=== PATIENT | female | born 1975 ===

== ENCOUNTER 2019-01-04 22:07 | Emergency (ER) | payer BC, MEDICAID ==
[2019-01-04] MEDS ORDERED: Ketorolac 60 MG/2 ML SDV IM ONE (22:51)
--- NOTE | 2019-01-04 22:51 | EDM.PDOC ---
ED HPI GENERAL MEDICAL PROBLEM - General Stated Complaint: NECK PAIN Time Seen by Provider: 01/04/19 22:07 Source of Information: Reports: Patient, Family History Limitations: Reports: No Limitations - History of Present Illness INITIAL COMMENTS - FREE TEXT/NARRATIVE: 43 y.o.w.f from [place] came with her family to the ED due to sudden onset of left sided neck pain when she got up this morning. No trauma. Pt had similar symptoms in the past. No N/V/D. Pt has some kidney issues (?). No other acute med issues. BP 132/90 RR 18 Pulse ox 100% on RA Temp 36.6 Pulse 112 Onset Date: 01/04/19 Onset Time: 07:00 Duration: Hour(s):, Day(s): Location: Reports: Neck Quality: Reports: Dull Severity: Moderate Improves with: Reports: Rest Worsens with: Reports: Movement Context: Reports: Other Associated Symptoms: Reports: No Other Symptoms Left Neck Pain Score (Numeric/FACES): 10 - Related Data Allergies Allergy/AdvReac Type Severity Reaction Status Date / Time No Known Allergies Allergy Verified 11/04/15 08:22 Home Meds: Home Meds Cyclobenzaprine [Flexeril] 5 - 10 mg PO TID PRN 12/17/14 [History] Rizatriptan [Maxalt] 10 mg PO ASDIRECTED PRN 12/17/14 [History] Tetrahydrozoline [Visine] 1 drop EYEBOTH Q4HR PRN 12/17/14 [History] Gabapentin [Neurontin] 100 mg PO DAILY 11/03/15 [History] Ibuprofen [Motrin] 800 mg PO Q8HR PRN 11/03/15 [History] Simvastatin [Zocor] 10 mg PO DAILY 11/04/15 [History] metFORMIN [Glucophage] 500 mg PO BIDMEALS 11/04/15 [History] Orphenadrine [Norflex] 100 mg PO BID PRN #10 tab 01/04/19 [Rx] Past Medical History HEENT History: Reports: None Cardiovascular History: Reports: None Respiratory History: Reports: None Gastrointestinal History: Reports: Cholelithiasis CANNONEER History: Reports: Other Musculoskeletal History: LEFT KNEE PAIN R/T POSTERIOR HORN RADIAL TEAR Neurological History: Reports: Migraines Psychiatric History: Reports: None Endocrine/Metabolic History: Reports: Diabetes, Type II, Obesity/BMI 30+ Hematologic History: Reports: None Immunologic History: Reports: None Oncologic (Cancer) History: Reports: None Dermatologic History: Reports: None - Infectious Disease History Infectious Disease History: Reports: None - Past Surgical History Female Surgical History: Reports: Breast Biopsy, Section, Hysterectomy, Oophorectomy ED ROS GENERAL - Review of Systems Review Of Systems: See Below Constitutional: Reports: No Symptoms HEENT: Reports: No Symptoms Respiratory: Reports: No Symptoms Cardiovascular: Reports: No Symptoms Endocrine: Reports: No Symptoms GI/Abdominal: Reports: No Symptoms : Reports: No Symptoms Musculoskeletal: Reports: Neck Pain Skin: Reports: No Symptoms Neurological: Reports: No Symptoms Psychiatric: Reports: No Symptoms Hematologic/Lymphatic: Reports: No Symptoms Immunologic: Reports: No Symptoms - Physical Exam Exam: See Below Exam Limited By: No Limitations General Appearance: Alert, WD/WN, Moderate Distress Eye Exam: Bilateral Eye: Normal Inspection Ears: Normal External Exam, Normal Canal Nose: Normal Inspection Throat/Mouth: Normal Inspection, Normal Lips, Normal Voice, No Airway Compromise Head Exam: Atraumatic, Normocephalic Neck: Normal Inspection, Tender Lateral (left lateral ) Respiratory/Chest: No Respiratory Distress, Lungs Clear, Normal Breath Sounds, Chest Non-Tender Cardiovascular: Normal Peripheral Pulses, Regular Rate, Rhythm, No Edema, No Gallop GI/Abdominal: Normal Bowel Sounds, Soft, Non-Tender, No Organomegaly, No Mass, Pelvis Stable (Female) Exam: Deferred Rectal (Female) Exam: Deferred Neuro Exam (Abbreviated): Alert, Oriented, CN II-XII Intact, Normal Cognition, Normal Gait Back Exam: Normal Inspection, Full Range of Motion Extremities: Normal Inspection, Normal Range of Motion, Non-Tender, No Pedal Edema Psychiatric: Normal Affect, Normal Mood Skin Exam: Warm, Dry, Intact, Normal Color, No Rash Course - Vital Signs Text/Narrative:: 43 y.o.w.f [place] came with her family to the ED due to sudden onset of left sided neck pain when she got up this morning. No trauma. Pt had similar symptoms in the past. No N/V/D. Pt has some kidney issues (?). No other acute med issues. BP 132/90 RR 18 Pulse ox 100% on RA Temp 36.6 Pulse 112 PE: WNWD W F with left neck sprain Imaging/Labs: Not indicated Impression: Left neck sprain Tx: Toradol, Norflex Reexam: Improved 80% Plan: D/C with instructions Last Recorded V/S: Last Vital Signs Temp 36.8 C 01/04/19 23:25 Pulse 93 01/04/19 23:25 Resp 16 01/04/19 23:25 BP 128/72 01/04/19 23:25 Pulse Ox 98 01/04/19 23:25 - Orders/Labs/Meds Meds: Medications Discontinued Medications Generic Name Dose Route Start Last Admin Trade Name Freq PRN Reason Stop Dose Admin Ketorolac Tromethamine 60 mg 01/04/19 22:51 01/04/19 23:06 Toradol IM 01/04/19 22:52 60 mg ONETIME ONE Administration Orphenadrine Citrate 60 mg 01/04/19 23:00 01/04/19 23:06 Norflex IM 60 mg Q12H MORRO Administration Departure - Departure Time of Disposition: 23:21 Disposition: Home, Self-Care 01 Condition: Good Clinical Impression: Acute neck sprain Qualifiers: Encounter type: initial encounter Qualified Code(s): S13.9XXA - Sprain of joints and ligaments of unspecified parts of neck, initial encounter - Discharge Information Prescriptions: Orphenadrine [Norflex] 100 mg PO BID PRN #10 tab PRN Reason: Muscle Spasm Instructions: Cervical Sprain, [id number] Referrals: Samaria Whaley NP [Primary Care Provider] - Forms: ED Department Discharge Additional Instructions: please apply ice to the affected area, Norflex for muscle spasm, please f/u, come back if your symptoms get worse acutely
[2019-01-05 00:35] VITALS: BP 128/72
== END 2019-01-04 23:30 | disposition home or self-care (01) ==
LOC: FB.ED 22:07
DX: S13.9XXA Sprain of joints and ligaments of unspecified parts of neck, initial encounter (principal); Z79.899 Other long term (current) drug therapy; X58.XXXA Exposure to other specified factors, initial encounter
CPT/HCPCS: 96372; 99283; J1885; J2360

== ENCOUNTER 2019-11-13 08:20 | Day surgery (SDC) | payer BC ==
[~2019-11-13 08:20] MED LIST: Lactated Ringers 1,000 ML IV SCH; Sodium Chloride 0.9% 10 ML Syringe FLUSH PRN
[2019-11-13] MEDS ORDERED: Propofol 200 MG/20 ML SDV IV ONE (08:21)
--- NOTE | 2019-11-13 10:42 | PCM.OPNOTE ---
- General Post-Op/Procedure Note Date of Surgery/Procedure: 11/13/19 Operative Procedure(s): egd with cold forcep biopsy. c scope with cold forcep biopsy Findings: gastroduodenitis esophagitis ascending colon polyp Pre Op Diagnosis: dysphagia. rlq abd pain Post-Op Diagnosis: gastroduodenitis. esophagitis. ascending colon polyp Anesthesia Technique: MAC Primary Surgeon: Abdoulaye Pichardo Anesthesia Provider: Andreas Lebron Pathology: stomach duodenum esophagus colon polyp Complications: None Condition: Good Free Text/Narrative:: see dictation
[2019-11-13 11:15] VITALS: BP 113/65
[2019-11-13 11:21] VITALS: PULSE 61
--- NOTE | 2019-11-13 17:12 | OR ---
DATE OF OPERATION: 11/13/2019 SURGEON: Abdoulaye Pichardo MD PROCEDURES PERFORMED: Esophagogastroduodenoscopy with cold forceps biopsy and colonoscopy with cold forceps biopsy. PREOPERATIVE DIAGNOSES: History of dysphagia as well as right lower quadrant abdominal pain. POSTOPERATIVE DIAGNOSES: Gastroduodenitis, esophagitis, and ascending colon polyp. DESCRIPTION OF OPERATION: After excellent IV sedation was administered, the bite block was inserted. The flexible endoscope was passed without difficulty down the patient's esophagus and into the stomach. Stomach was insufflated. Scope passed through the pylorus, second portion of the duodenum, and slowly withdrawn. Following findings were noted. First portion of the duodenum demonstrated some inflammation and biopsies were taken. Stomach, diffuse inflammation and biopsies were taken. The esophagus, especially the distal 3 cm, also demonstrated some mild inflammation as well and multiple biopsies were taken. The stomach was deflated, and the scope was removed. Our attention was then turned to the rectum. Digital rectal exam was performed. No marked abnormality was noted. Flexible colonoscope was inserted and advanced to the cecum. The prep was excellent. The following findings were noted. Ascending colon, small polyp, biopsied with cold biopsy forceps and sent for permanent. Transverse colon, unremarkable. Descending colon, unremarkable. Sigmoid, unremarkable. Rectum and anus, unremarkable. The patient tolerated the procedure well and was taken to recovery room in good condition. We will be seeing her back in the office in 7 to 10 days. /[id number] EDWIN/NANY
== END 2019-11-13 11:34 | disposition home or self-care (01) ==
LOC: FB.SDS 08:20
PROVIDERS: ATTEND Surgery
DX: D12.2 Benign neoplasm of ascending colon (principal); K29.80 Duodenitis without bleeding; K29.50 Unspecified chronic gastritis without bleeding; K20.9 Esophagitis, unspecified; F33.2 Major depressive disorder, recurrent severe without psychotic features; E11.9 Type 2 diabetes mellitus without complications; Z79.899 Other long term (current) drug therapy; Z79.84 Long term (current) use of oral hypoglycemic drugs
CPT/HCPCS: 82962; 88305; 88313; 88342; J2704; J7120

== ENCOUNTER 2021-05-04 10:21 | Day surgery (SDC) | payer BC ==
[2021-05-04] MEDS ORDERED: Propofol 200 MG/20 ML SDV IV ONE (10:22)
[2021-05-04] MEDS ORDERED: Lactated Ringers 1,000 ML IV SCH (10:30)
[2021-05-04] MEDS ORDERED: Sodium Chloride 0.9% 10 ML Syringe FLUSH PRN (10:30)
--- NOTE | 2021-05-04 13:09 | PCM.OPNOTE ---
- General Post-Op/Procedure Note Date of Surgery/Procedure: 05/04/21 Operative Procedure(s): EGD with Biopsy Findings: Mild erythema of distal gastric mucosa, No ulcers or other lesions seen Pre Op Diagnosis: Epigastric pain Post-Op Diagnosis: Same Anesthesia Technique: MAC Primary Surgeon: Shayan Franco Pathology: Biopsies of duodenum and stomach EBL in mLs: 2 Complications: None Condition: Good
--- NOTE | 2021-05-04 14:01 | PREOP ---
ADMISSION DATE: 05/04/2021 This 45-year-old female is referred today for EGD. This patient has been experiencing a 1 month history of epigastric burning pain associated with some nausea. Symptoms seem to be worsening recently and now she is having some vomiting as well. The patient has had previous cholecystectomy. She was taking some Zantac previously, but is not taking this at this time. The patient's recent history and physical was reviewed and no significant changes are noted. I have discussed the proposed upper endoscopy with the patient. She agrees to proceed accepting risks. Her questions were answered. /[id number] LAM/NANY
--- NOTE | 2021-05-04 14:16 | OR ---
DATE OF OPERATION: 05/04/2021 SURGEON: Shayan Franco MD PREOPERATIVE DIAGNOSIS: Epigastric pain. POSTOPERATIVE DIAGNOSIS: Gastritis. OPERATION PERFORMED: Esophagogastroduodenoscopy with biopsy. INDICATIONS FOR SURGERY: This 45-year-old female has a 1 month history of epigastric pain with some nausea and vomiting. She is referred for diagnostic EGD. FINDINGS: The patient has a mild degree of hyperemia suggestive of inflammation in the lower part of the stomach. Mild redness is noted in this area, but there were no ulcerations or other lesions seen. The esophagus and remainder of the stomach and duodenum also appeared normal. PROCEDURE IN DETAIL: The patient was taken to the procedure room. She was given intravenous sedation and with her in the left lateral decubitus position, the Olympus gastroscope was advanced into the oral cavity. Under direct visualization, the scope was then advanced through the oropharynx, into the esophagus, and then down through the esophagus, stomach, and into the duodenum where examination to the fourth portion was performed. After examining the duodenum, random biopsies of this area are taken because of her pain. The scope was withdrawn back into the stomach where full examination including retroflexed examination of the fundus was performed. Random biopsies of the antrum as well as the proximal stomach are taken because of her symptoms. The GE junction and esophagus were then re-examined as the scope was removed. The patient was then taken from the procedure room in satisfactory condition. ESTIMATED BLOOD LOSS: 2 mL. COMPLICATIONS: None. PROGNOSIS: Good. /[id number] LAM/NANY
[2021-05-04 14:18] VITALS: BP 105/58; PULSE 58
== END 2021-05-04 14:20 | disposition home or self-care (01) ==
LOC: FB.SDS 10:21
PROVIDERS: ATTEND Surgery
DX: K29.50 Unspecified chronic gastritis without bleeding (principal); R63.4 Abnormal weight loss; I10 Essential (primary) hypertension; E11.9 Type 2 diabetes mellitus without complications; E78.1 Pure hyperglyceridemia; Z79.899 Other long term (current) drug therapy
CPT/HCPCS: 00731; 36415; 43239; 80048; 82947; 88305; 88342; J2704; J7120